=== PATIENT | female | born 1975 | race Caucasian/White ===

== ENCOUNTER 2021-08-15 04:56 | Day surgery (SDC) | payer OTHER ==
[2021-08-14 10:25] VITALS: BMI 24.0
[2021-08-15] MEDS ORDERED: LIDOCAINE HCL 1%, 10 MG/ML (20ML VIAL) ONE (12:29)
[2021-08-15] MEDS ORDERED: BENZOIN/ALOE VERA/STORAX/TOLU 58 ML BOTTLE ONE (12:29)
[2021-08-15] MEDS ORDERED: BUPIVACAINE HCL/PF 0.5% (5MG/ML) 10 ML VIAL ONE (12:29)
[2021-08-15] MEDS ORDERED: ceFAZolin SODIUM 1 GM VIAL ONE (14:38)
[2021-08-15] MEDS ORDERED: MIDAZOLAM HCL 2 MG/2 ML SINGLE DOSE VIAL ONE ×3 (14:39→15:40)
[2021-08-15] MEDS ORDERED: PROPOFOL 20 ML ONE ×2 (14:39)
[2021-08-15] MEDS ORDERED: ceFAZolin 2 GRAM PREMIX BAG IVPB ONE (14:45)
[2021-08-15] MEDS ORDERED: LIDOCAINE HCL 1%, 10 MG/ML (50 mL VIAL) INF ONE (14:47)
[2021-08-15] MEDS ORDERED: PROMETHAZINE HCL 25 MG/1 ML VIAL IVPUSH PRN (15:48)
[2021-08-15] MEDS ORDERED: oxyCODONE HCL 5 MG TABLET PO PRN (15:48)
[2021-08-15] MEDS ORDERED: ONDANSETRON 4 MG/2 ML VIAL IVPUSH PRN (15:48)
[2021-08-15] MEDS ORDERED: BUPIVACAINE HCL/PF 0.25% (2.5MG/ML) 10 ML VIAL ONE (16:18)
[2021-08-15] MEDS ORDERED: BACITRACIN 15 GM TUBE TOPICAL OINTMENT ONE (16:39)
[2021-08-15] MEDS ORDERED: BUPIVACAINE HCL/PF 0.25% (2.5MG/ML) 10 ML VIAL IJ ONE ×2 (16:42)
[2021-08-15] MEDS ORDERED: KETOROLAC TROMETHAMINE 30 MG/1 ML VIAL ONE (17:10)
[2021-08-15] MEDS ORDERED: ONDANSETRON 4 MG/2 ML VIAL ONE (17:10)
[2021-08-15] MEDS ORDERED: ACETAMINOPHEN 325 MG TABLET (FP) ONE (17:48)
[2021-08-15] MEDS ORDERED: IBUPROFEN 600 MG TABLET (FP) PO ONE ×2 (18:03→18:50)
[2021-08-15] MEDS ORDERED: ACETAMINOPHEN 325 MG TABLET (FP) PO ONE (18:50)
[2021-08-15 19:43] VITALS: BP 139/64; PULSE 72; TEMP 98
== END 2021-08-15 19:10 | disposition home or self-care (01) ==
LOC: JASU-SURG 04:56
PROVIDERS: ATTEND Podiatrist Foot Surgery
PROC: 0QSP04Z Reposition Left Metatarsal with Internal Fixation Device, Open Approach (ICD-10-PCS; principal; 2021-08-15 13:30)
DX: M20.12 Hallux valgus (acquired), left foot (principal); M21.612 Bunion of left foot
CPT/HCPCS: 28298; C1713; 73630-TC-LT; 81025; 88304-TC; 88311-TC

== ENCOUNTER 2021-11-07 04:18 | Day surgery (SDC) | payer OTHER ==
[2021-11-05 10:27] VITALS: BMI 24.0
[~2021-11-07 04:18] MED LIST: BUPIVACAINE HCL/PF 0.5% (5MG/ML) 10 ML VIAL IJ ONE
[2021-11-07] MEDS ORDERED: LIDOCAINE HCL 1%, 10 MG/ML (20ML VIAL) ONE (12:42)
[2021-11-07] MEDS ORDERED: BUPIVACAINE HCL/PF 0.5% (5MG/ML) 10 ML VIAL ONE (12:43)
[2021-11-07] MEDS ORDERED: ACETAMINOPHEN INJECTION 100 ML IVPB ONE (13:10)
[2021-11-07] MEDS ORDERED: MIDAZOLAM HCL 2 MG/2 ML SINGLE DOSE VIAL ONE (13:12)
[2021-11-07] MEDS ORDERED: LIDOCAINE HCL 1%, 10 MG/ML (20ML VIAL) INF ONE (13:23)
[2021-11-07] MEDS ORDERED: SUCCINYLCHOLINE CHLORIDE 200 MG/10 ML SYRINGE ONE (13:36)
[2021-11-07] MEDS ORDERED: PROPOFOL 20 ML ONE (13:41)
[2021-11-07] MEDS ORDERED: BUPIVACAINE HCL/PF 0.5% (5MG/ML) 10 ML VIAL IJ ONE (14:19)
[2021-11-07 15:56] VITALS: BP 118/74; PULSE 59; TEMP 97.7
== END 2021-11-07 17:00 | disposition home or self-care (01) ==
LOC: JASU-SURG 04:18
PROVIDERS: ATTEND Podiatrist Foot Surgery
PROC: 0QSP04Z Reposition Left Metatarsal with Internal Fixation Device, Open Approach (ICD-10-PCS; principal; 2021-11-07 13:00)
DX: M21.622 Bunionette of left foot (principal)
CPT/HCPCS: 73630-TC-LT; 81025; 88304-TC; 88311-TC; 94760